=== PATIENT | male | born 1940 | race Caucasian/White ===

== ENCOUNTER 2023-09-24 09:02 | Day surgery (SDC) | payer MEDICARE, OTHER ==
[2023-09-24] MEDS ORDERED: BUPIVACAINE 0.5% VIAL IJ ONE (09:03)
[2023-09-24] MEDS ORDERED: Depo-Medrol 40 MG/ML IM ONE (09:03)
[2023-09-24] MEDS ORDERED: LIDOCAINE HCL 1% 50 MG/5 ML VL PF IJ ONE (09:03)
--- NOTE | 2023-09-24 12:26 | XRAY ---
Indication: Left shoulder and subacromial bursa injection. Intraoperative fluoroscopy provided for 27 seconds. 2 digital spot image submitted for interpretation demonstrates needle tip projecting over left glenohumeral joint superiorly. Second needle tip subacromial. Small amount of contrast injected for both needle tip placement. Correlate with intraoperative findings/report.
--- NOTE | 2023-09-24 12:54 | XRAY ---
27 seconds of fluoroscopy was used in surgery for a left intra-articular shoulder and subacromial bursa injection.
== END 2023-09-24 11:15 | disposition home or self-care (01) ==
LOC: SDC-PAIN 09:02
PROVIDERS: ATTEND Psychiatry & Neurology Pain Medicine
DX: M19.012 Primary osteoarthritis, left shoulder (principal)
CPT/HCPCS: 20610; 73030; 77002; J1010; J2001; Q9966; J1030